=== PATIENT | male | born 1980 | race Caucasian/White ===

== ENCOUNTER 2021-09-05 01:30 | Emergency (ER) | payer OTHER ==
[2021-09-05 02:55] LABS: BASOPHIL 0.4 % (0-2); EOSINOPHIL 0.4 % (0-5); HCT 39.3 % (42.0-52.0); HGB 13.4 g/dl (13.2-18.0); LYMPHOCYTE 6.9 % (15-48); MCH 28.3 pg (25.0-31.0); MCHC 34.1 g/dL (32.0-36.0); MCV 82.9 fL (78.0-100.0); MONOCYTE 6.5 % (0-12); MPV 8.7 fL (6.0-9.5); NEUTROPHIL 84.8 % (41-80); NRBC 0; PLT 398 K/uL (150-400); RBC 4.74 M/uL (4.70-6.00); RDW 11.6 % (11.5-14.0); WBC 9.1 K/uL (4.0-10.5)
[2021-09-05 03:05] LABS: ALBUMIN 3.9 g/dL (3.4-5.0); BILIRUBIN - TOTAL 0.3 mg/dL (0.2-1.0); BUN/CREAT RATIO (CALC) 9.6 RATIO; CREATININE 0.94 mg/dL (0.67-1.17); GLOBULIN (CALCULATION) 4.2 g/dL; POTASSIUM 3.9 mmol/L (3.5-5.1); TOTAL PROTEIN 8.1 g/dL (6.4-8.2)
[2021-09-05] MEDS ORDERED: ZPAK PO (06:23)
[2021-09-05] MEDS ORDERED: AMOX TR-K CLV1 EAC4 PO (06:23)
== END 2021-09-05 06:40 | disposition home or self-care (01) ==
LOC: FER 01:30
PROVIDERS: Emergency Medicine
DX: U07.1 COVID-19 (principal); J12.82 Pneumonia due to coronavirus disease 2019
CPT/HCPCS: 36415; 71045; 71275; 80053; 84484; 85025; 85379; 93005; J7030; Q9967; U0002